=== PATIENT | female | born 2000 | race Caucasian/White ===

== ENCOUNTER 2020-12-13 18:56 | Emergency (ER) | payer OTHER ==
[~2020-12-13] VITALS: Ht 170.2 cm; Wt 101.7 kg
[2020-12-13] MEDS ORDERED: SODIUM CHLORIDE FLUSH 10ML SYR IVF ONE (21:30)
[2020-12-13] MEDS ORDERED: DEXAMETHASONE 4 MG/ML, 1ML IV ONE (21:30)
[2020-12-13] MEDS ORDERED: CLINDAMYCIN PMX 600MG/50ML 50 ML IV ONE (21:30)
[2020-12-13] MEDS ORDERED: ONDANSETRON 2MG/ML, 2ML IVPush ONE (21:30)
[2020-12-13] MEDS ORDERED: MORPHINE SULFATE 4 MG/ML, 1ML IVPush PRN (21:30)
[2020-12-13] MEDS ORDERED: DEXAMETHASONE 4 MG/ML, 1ML ONE (21:43)
[2020-12-13] MEDS ORDERED: ONDANSETRON 2MG/ML, 2ML ONE (21:43)
[2020-12-13] MEDS ORDERED: CLINDAMYCIN PMX 600MG/50ML 50 ML ONE (21:44)
[2020-12-13] MEDS ORDERED: MORPHINE SULFATE 4 MG/ML, 1ML ONE (21:44)
[2020-12-13] MEDS ORDERED: LIDOCAINE-MPF 1%, 5ML ONE (21:45)
[2020-12-14 00:11] VITALS: BP 133/77
== END 2020-12-14 00:13 | disposition home or self-care (01) ==
LOC: ED 19:26
DX: J36 Peritonsillar abscess (principal); Z88.0 Allergy status to penicillin
CPT/HCPCS: 96365; 96375; 99284; J1100; J2270; J2405